=== PATIENT | female | born 1950 | race Hispanic/Latino ===

== ENCOUNTER → 2017-12-18 | Outpatient (CLI) | payer MEDICARE, MEDICAID | END | disposition home or self-care (01) | LOC: RAH 08:12 | PROVIDERS: ATTEND Internal Medicine Gastroenterology | DX: R10.12 Left upper quadrant pain (principal); Z90.49 Acquired absence of other specified parts of digestive tract | CPT/HCPCS: 76700 ==

== ENCOUNTER → 2024-10-26 | Outpatient (CLI) | payer MEDICARE ==
[2024-10-26 12:22] LABS: CREATININE 0.8 mg/dL (0.5-1.0)
== END | disposition home or self-care (01) ==
LOC: LAB 11:14
PROVIDERS: ATTEND Internal Medicine Gastroenterology
DX: R10.32 Left lower quadrant pain (principal)
CPT/HCPCS: 36415; 82565; 84520

== ENCOUNTER → 2024-11-05 | Outpatient (CLI) | payer MEDICARE ==
[~2024-11-05] MED LIST: IOHEXOL 350 MG/ML 100ML INFUS..BTL IV ONE
--- NOTE | 2024-11-05 11:53 | HMCIMG ---
Exam Type: CT ABDOMEN/PELVIS W/WO CONTRAS Clinical Information: LLQ PAIN Comparison: None Contrast: 100 cc's Isovue 370 IV, no complications or adverse reactions CT Dose Index (CTDI): 31.60 mGy Dose Length Product (DLP): 1740.80 total mGy-cm Findings: No evidence of nephro or ureterolithiasis is found. No hydronephrosis or ureteral dilatation is seen. The lung bases are clear. The stomach is unremarkable. It shows no wall thickening. No gross ulceration is seen. It is not overly distended. There are no surrounding inflammatory changes. No wall lesions are identified to suggest cancer. The spleen is unremarkable. It is not enlarged. The pancreas shows normal anatomy. It is not fatty replaced. It shows no lesions. The pancreatic duct is not dilated. The gallbladder is surgically absent. The adrenal glands are unremarkable. There is no enlargement. No lesions are noted. The liver is unremarkable. It shows no focal masses. The appendix is unremarkable. It shows no evidence of inflammation. No appendicolith is seen. The small bowel is unremarkable. There is no evidence of dilatation to suggest obstruction. No evidence of adynamic ileus is seen. There is no small bowel wall thickening to suggest enteritis. The colon is unremarkable. The urinary bladder is unremarkable. There is no wall thickening to suggest tumor or inflammation. There are no intraluminal calculi. There are no diverticula. There is no evidence of chronic bladder outlet obstruction. There is no evidence of urinary bladder distention to suggest urinary retention. The other pelvic structures are unremarkable. The bony and vascular structures are unremarkable for the patient's age. IMPRESSION: No acute pathology. This study was performed using dose reduction techniques to include automated exposure control and/or adjustment of the mA and/or kV according to patient size.
== END | disposition home or self-care (01) ==
LOC: RAH 09:59
PROVIDERS: ATTEND Internal Medicine Gastroenterology
DX: R10.32 Left lower quadrant pain (principal)
CPT/HCPCS: 74178; Q9967

== ENCOUNTER 2025-06-24 08:58 | Observation (INO) | payer MEDICARE ==
[~2025-06-24] VITALS: Ht 152.4 cm; Wt 45.8 kg
--- NOTE | 2025-06-24 09:22 | ERN ---
General Chief Complaint: Abdominal Pain Stated Complaint: LLQ ABDOMINAL PAIN Time Seen by MD: 10:09 Source: patient History of Present Illness Initial Comments This patient is a 74-year-old female who presented with complaint of abdominal pain. Patient states that pain started a week ago and she visited her PCP but pain did not improve, despite being on antibiotic therapy with Flagyl. Patient has pain in the umbilical abdominal quadrant as well as mild pain in left flank area. She also has episodes of vomiting for the past 3 days. She has had diarrhea without blood. She reports no fever or chills. Timing/Duration: 1 week Associated Symptoms: nausea/vomiting Allergies: Coded Allergies: No Known Allergies (Unverified Allergy, Unknown, 06/24/25) Past Medical History Past Medical History: Anemia, Arthritis, Diabetes-Type II, Diverticulosis, Hypertension Medical History Other: RA Past Surgical History: Other Gastrointestinal/Abdominal: (+) nausea, (+) vomiting, (+) diarrhea, (+) abdominal pain Genitourinary: (-) vaginal discharge, (-) vaginal bleeding, (-) dysuria, (-) frequency, (-) hematuria, (-) pain, (-) other documentation Musculoskeletal: (-) Neck pain, (-) back pain, (-) Flank Pain, (-) joint pain, (-) joint swelling, (-) muscle pain, (-) muscle stiffness, (-) gout, (-) other documentation Skin: (-) laceration, (-) contusion, (-) abrasion, (-) abscess, (-) rash, (-) change in color, (-) change in hair, (-) change in nails, (-) diaphoresis, (-) dryness, (-) other documentation Neuro: (-) altered mental status, (-) headache, (-) syncope, (-) paralysis, (-) numbness, (-) seizure, (-) pre-existing deficit, (-) tremors, (-) weakness, (-) dizziness, (-) slurred speech, (-) vertigo, (-) other documentation Psych: (-) depression, (-) suicidal ideation, (-) anxiety, (-) emotional problems, (-) auditory hallucinations, (-) visual hallucinations Hematologic/Lymphatic: (-) anemia, (-) blood clots, (-) easy bleeding, (-) easy bruising, (-) swollen glands, (-) other documentation Physical Exam General Appearance: (+) no apparent distress Orientation: (+) alert, (+) oriented x 3 Ear, Nose, Throat: (+) hearing grossly normal, (+) normal ENT inspection Neck: (+) normal inspection, (+) supple, (+) full range of motion Respiratory: (+) chest non-tender Heart: (+) regular Gastrointestinal: (+) soft, (+) tender (With deep palpation. In the umbilical and left lumbar regions) Extremities: (+) normal range of motion, (+) non-tender Neurologic/Psychiatric: (+) normal speech, (+) no motor defecits, (+) no sensory deficits Skin: (+) normal color Results Laboratory and Microbiology Lab and Micro Result Laboratory Tests Test 06/24/25 09:45 06/24/25 10:18 06/24/25 10:45 06/24/25 11:41 White Blood Count 6.1 K/uL (4.8-10.8) Red Blood Count 3.05 MIL/uL (4.00-5.50) L Hemoglobin 9.5 g/dL (12.0-16.0) L Hematocrit 28.6 % (36-48) L Mean Corpuscular Volume 93.8 fL (79-99) Mean Corpuscular Hemoglobin 31.1 pg (27.0-33.0) Mean Corpuscular Hemoglobin Concent 33.2 g/dL (32.0-36.0) Red Cell Distribution Width 12.4 % (11.0-15.5) Platelet Count 215 K/uL (130-400) Mean Platelet Volume 9.7 fL (7.5-10.5) Nucleated Red Blood Cells 0.0 % (0.0-0.19) Sodium Level 130 mmol/L (136-145) L Potassium Level 5.7 mmol/L (3.5-5.1) H Chloride Level 100 mmol/L (101-111) L Carbon Dioxide Level 22 mmol/L (21-32) Blood Urea Nitrogen 24 mg/dL (7-18) H Creatinine 1.2 mg/dL (0.5-1.0) H Glomerular Filtration Rate Calc 47 mL/min (>90) Random Glucose 259 mg/dL (70-105) H Total Calcium 8.8 mg/dL (8.5-10.1) Total Bilirubin 0.3 mg/dL (0.2-1.0) Aspartate Amino Transf (AST/SGOT) 23 U/L (10-37) Alanine Aminotransferase (ALT/SGPT) 32 U/L (12-78) Alkaline Phosphatase 87 U/L (50-136) Total Protein 7.0 g/dL (6.0-8.3) Albumin 3.5 g/dL (3.5-5.0) Urine Color YELLOW (YELLOW) Urine Appearance CLEAR (CLEAR) Urine pH 5.0 (5.0-8.0) Urine Specific [place] 1.013 (1.001-1.031) Urine Protein 10 mg/dL (NEGATIVE) H Urine Glucose (UA) 200 mg/dL (NEGATIVE) H Urine Ketones NEGATIVE mg/dL (NEGATIVE) Urine Occult Blood NEGATIVE (NEGATIVE) Urine Nitrate NEGATIVE (NEGATIVE) Urine Bilirubin NEGATIVE mg/dL (NEGATIVE) Urine Urobilinogen 0.2 mg/dL (0.2-1.0) Urine Leukocyte Esterase 75 Susan/uL (NEGATIVE) H Urine RBC 2-5 /HPF (0-1) H Urine WBC 6-10 /HPF (0-1) H Urine Squamous Epithelial Cells RARE /HPF (0-2) Urine Non-Squamous Epithelial Cells 1 /HPF (0-2) Urine Bacteria None /HPF (None Seen) Urine Hyaline Casts 2-5 /LPF (0-1 /LPF) H Whole Blood Glucose 220 MG/DL (70-110) H 137 MG/DL (70-110) H EKG/XRAY/US/CT/MRI EKG Comment 06/24/2025 9:21 a.m. Sinus rhythm Rate 80, MA 144, QT 368, [place]: P 70, T 75, QRS -[address]-elevation CT Scan Comment PATIENT: ARGENIS DUMONT MR#: [id number] : 1950 SEX: F AGE: 74 LOCATION: [facility] ORDER 2 STATUS: REG REPORT#: [id number] SERVICE 9 REASON: Abdominal pain localized to left lower quadrant and left flank area. ORDERING PHYSICIAN: DAVIE FRANKLIN MD PROCEDURE: ABD PEL WO - CT ABDOMEN/PELVIS W/O CONTRAST EXAM: CT Abdomen and Pelvis without IV contrast CLINICAL HISTORY: Abdominal pain localized to left lower quadrant and left flank. TECHNIQUE: Thin collimated axial CT images of the abdomen and pelvis were obtained with sagittal and coronal reformatted images also submitted. CT scan is done according to ALARA (As Low As Reasonably Achievable). CONTRAST: None. COMPARISON: Prior CT abdomen and pelvis dated 11/05/24. FINDINGS: Linear atelectasis at the right lung base. No focal abnormality within the liver, pancreas, spleen, or adrenals. Small 6 mm cortical cyst at the lower pole of the right kidney. Status post cholecystectomy. There is no obvious bowel wall thickening. Bowel loops are normal in caliber without evidence of obstruction or ileus. The appendix is normal. There is no abnormality within the urinary bladder. Unremarkable reproductive organs. Senile myometrial calcifications. No lymphadenopathy. No free fluid. There is no acute osseous abnormality. Multilevel thoracolumbar spondylosis. IMPRESSIONS: No acute process in the abdomen or pelvis. No significant interval change. /[place] DICTATED BY: SEVERIANO DOMINGO Jr., MD DATE: 06/24/25 121 ELECTRONICALLY SIGNED BY: SEVERIANO DOMINGO Jr., MD DATE: 06/24/25 1211 [facility] Differential Diagnosis: Dehydration, acute kidney injury, acute cystitis, viral gastroenteritis This patient is a 74-year-old female who presented with complaint of abdominal pain. Patient states that pain started a week ago and she visited her PCP but pain did not improve, despite being on antibiotic therapy with Flagyl. Patient has pain in the umbilical abdominal quadrant as well as mild pain in left flank area. She also has episodes of vomiting for the past 3 days. She has had diarrhea without blood. She reports no fever or chills. On Presentation, CMP was done which showed elevated creatinine and BUN with 20:1. Patient's sodium was reduced to 130. Potassium was elevated at 5.7. Patient missed her insulin dose yesterday and her blood glucose this morning was elevated, 257. She was given insulin 5 units for hyperglycemia and elevated pot assium. She was also provided 500 mL normal saline for dehydration. Ondansetron was given for vomiting and Tylenol for pain. Rocephin injection was given for suspected cystitis. CT abdomen pelvis without contrast was performed which showed no acute process in the abdomen or pelvis and no significant interval change. Urinalysis profile showed elevated leukocyte esterase. Patient is pending repeat BMP and urine culture. ED Course Orders Procedure Category Date Status Time Cbc Without LAB 06/24/25 Complete Differential 09:10 Comprehensive LAB 06/24/25 Complete Metabolic Panel 09:10 Ct Abdomen/Pelvis W/O CT 06/24/25 Resulted Contrast 09:10 Urinalysis Profile LAB 06/24/25 Complete 09:10 0.9% Nacl 500ml PHA 06/24/25 Complete Iv.Soln (Ns 500ml 09:30 Ondansetron 4mg Inj PHA 06/24/25 Complete (Zofran 4mg Inj) 09:30 Acetaminophen 500mg PHA 06/24/25 Complete Tab (Tylenol 500mg T 09:30 12 Lead Ekg Tracing- EKG 06/24/25 Complete Technical 09:32 Culture Urine LEOBARDO 06/24/25 In Process 10:36 Insulin Regular, PHA 06/24/25 Complete Human 3ml (Humulin R 11:00 Ceftriaxone 1g Vial PHA 06/24/25 Complete (Rocephine 1g Inj) 11:30 Basic Metabolic Panel LAB 06/24/25 Logged 12:00 Current Medications Medications (Trade) Dose Ordered Sig/Ines Route PRN Reason Start Time Stop Time Status Last Admin Dose Admin Acetaminophen (TYLenol 500MG TAB) 500 mg ONCE ONCE PO 06/24/25 09:30 06/24/25 09:31 DC 06/24/25 10:25 Ceftriaxone Sodium (ROCEphine 1G INJ) 1 gm ONCE ONCE IVPB 06/24/25 11:30 06/24/25 11:31 DC 06/24/25 11:33 Insulin Human Regular (humuLIN R 100 UNIT/ML 3ML) 5 unit ONCE ONCE IV 06/24/25 11:00 06/24/25 11:01 DC 06/24/25 10:55 Ondansetron HCl (zoFRAN 4MG INJ) 4 mg ONCE ONCE IVP 06/24/25 09:30 06/24/25 09:31 DC 06/24/25 10:25 Sodium Chloride 500 ml @ 0 mls/hr ONCE ONCE IV 06/24/25 09:30 06/24/25 09:31 DC 06/24/25 10:25 Vital Signs Date Time Temp Pulse Resp B/P (MAP) Pulse Ox O2 Delivery O2 Flow Rate FiO2 06/24/25 10:32 97.9 76 16 131/55 100 Room Air* 0 21 06/24/25 09:30 98.6 88 20 128/54 99 Room Air* 0 21 06/24/25 09:00 98.6 88 20 128/54 99 Room Air DX & DISP Disposition: Inpatient Departure Impression: Primary Impression: Cystitis Additional Impressions: Acute kidney injury, Hyperkalemia, Dehydration Condition: Stable Referrals: CAMRYN TOWNSEND MD (PCP) I have examined patient, & reviewed all documents, & agreed W/ the Diagnosis, and Plan ATTESTATION BY PHYSICIAN I have seen and examined the patient. I reviewed the documentation, medical decision making, and treatment plan as noted by the resident provider above. I agree with the findings and plan of care. LORI IBRAHIM MD, MUHAMMAD H MD Jun 24, 2025 09:22
--- NOTE | 2025-06-24 09:54 | EKG ---
[facility] Test Date: 2025-06-24 Test Time: 09:21:01 Pat Name: ARGENIS DUMONT Department: ED Room: 306 Gender: F Reservations Agent: [id number] : 1950 Requested By: LORI IBRAHIM Order Number: [id number] Reading MD: Sung Aguilar Measurements Intervals [place] Rate: 80 P: 70 AR: 144 QRS: -11 QRSD: 103 T: 75 QT: 368 QTc: 424 Interpretive Statements Sinus rhythm Ventricular premature complex Probable left atrial enlargement Left ventricular hypertrophy Probable anterior infarct, old No previous ECG available for comparison Electronically Signed On 06-27-2025 10:29:02 CDT by Sung Aguilar Please click the below link to view image of tracing.
[2025-06-24 09:57] LABS: NUCLEATED RED BLOOD CELLS 0.0 % (0.0-0.19); PLATELET COUNT (AUTO) 215.0 K/uL (130-400); RED BLOOD CELL COUNT(AUTO) 3.05 MIL/uL (4.00-5.50); RED CELL DISTRIBUTION WIDTH 12.4 % (11.0-15.5); WHITE BLOOD COUNT (AUTO) 6.1 K/uL (4.8-10.8)
[2025-06-24 10:23] LABS: CREATININE 1.2 mg/dL (0.5-1.0); GLOMERULAR FILTR. RATE CALC 47.0 mL/min (>90); GLUCOSE,RANDOM 259.0 mg/dL (70-105); SODIUM SERUM 130.0 mmol/L (136-145); UREA NITROGEN, BLOOD 24.0 mg/dL (7-18)
[2025-06-24] MEDS: 0.9% NACL 500ML IV.SOLN 500 ML IV ONE (10:25)
[2025-06-24 10:27] LABS: ASPARTATE AMINOTRANSFERASE 23.0 U/L (10-37); TOTAL PROTEIN, SERUM 7.0 g/dL (6.0-8.3)
[2025-06-24 10:29] LABS: APPEARANCE,URINE CLEAR (CLEAR); GLUCOSE, URINE (UA) 200 mg/dL (NEGATIVE); LEUKOCYTE ESTERASE ,URINE 75 Leu/uL (NEGATIVE); NITRATE,URINE NEGATIVE (NEGATIVE); OCCULT BLOOD,URINE NEGATIVE (NEGATIVE)
[2025-06-24 10:30] LABS: ADD UA MICROSCOPIC YES
[2025-06-24 10:37] LABS: NON-SQUAMOUS EPITHELIAL CELL 1 /HPF (0-2); SQUAMOUS EPITHELIAL CELL,UR RARE /HPF (0-2)
--- NOTE | 2025-06-24 11:11 | HMCIMG ---
EXAM: CT Abdomen and Pelvis without IV contrast CLINICAL HISTORY: Abdominal pain localized to left lower quadrant and left flank. TECHNIQUE: Thin collimated axial CT images of the abdomen and pelvis were obtained with sagittal and coronal reformatted images also submitted. CT scan is done according to ALARA (As Low As Reasonably Achievable). CONTRAST: None. COMPARISON: Prior CT abdomen and pelvis dated 11/05/24. FINDINGS: Linear atelectasis at the right lung base. No focal abnormality within the liver, pancreas, spleen, or adrenals. Small 6 mm cortical cyst at the lower pole of the right kidney. Status post cholecystectomy. There is no obvious bowel wall thickening. Bowel loops are normal in caliber without evidence of obstruction or ileus. The appendix is normal. There is no abnormality within the urinary bladder. Unremarkable reproductive organs. Senile myometrial calcifications. No lymphadenopathy. No free fluid. There is no acute osseous abnormality. Multilevel thoracolumbar spondylosis. IMPRESSIONS: No acute process in the abdomen or pelvis. No significant interval change. /[place]
[2025-06-24 12:25] LABS: CREATININE 1.1 mg/dL (0.5-1.0); GLOMERULAR FILTR. RATE CALC 52.0 mL/min (>90); GLUCOSE,RANDOM 134.0 mg/dL (70-105); SODIUM SERUM 131.0 mmol/L (136-145); UREA NITROGEN, BLOOD 22.0 mg/dL (7-18)
--- NOTE | 2025-06-24 16:03 | NUR ---
DCP:HOME Pt currently lives at home with her daughter Yoselin Henry [phone] and . pt does not have any DME or home health services. Daughter states her sister is the pt's provider however did not know how many hours she works with her and didn't answer phone call. Provider does assist with all ADLs, home management, and meals. PCP is Dr. Alcides Luis and uses [facility] for any RX needs. At DC pt will want to go home and family can assist with transportation. Addendum: 06/24/25 at 1607 by QUINN MONTES DE OCA SS Amended: Links added.
[2025-06-24] MEDS: 1/2 NS 1000ML 1,000 ML IV SCH (17:02)
[2025-06-24] MEDS ORDERED: PIOG30TA70 PO (18:58)
[2025-06-24] MEDS ORDERED: CELE-146 PO (18:58)
[2025-06-24] MEDS ORDERED: DICY20TA3 PO (18:58)
[2025-06-24] MEDS ORDERED: FERR-82 PO (18:58)
[2025-06-24] MEDS ORDERED: ONDA-243 PO (18:58)
[2025-06-24] MEDS ORDERED: METR-172 PO (18:58)
[2025-06-24] MEDS ORDERED: METF-444 PO (18:58)
[2025-06-24] MEDS ORDERED: OMEP40CA21 PO (18:58)
[2025-06-24] MEDS ORDERED: HYDR200T75 PO (18:58)
[2025-06-24] MEDS ORDERED: LISI40TA15 PO (18:58)
[2025-06-24] MEDS ORDERED: ATOR10 PO (18:58)
--- NOTE | 2025-06-24 21:01 | HP ---
HISTORY AND PHYSICAL NOTE DATE OF CONSULTATION: 06/24/25 REASON FOR CONSULTATION: diarrhea HISTORY OF PRESENT ILLNESS: This patient is a 74-year-old female who presented with complaint of abdominal pain. Patient states that pain started a week ago and she visited her PCP but pain did not improve, despite being on antibiotic therapy with Flagyl. Patient has pain in the umbilical abdominal quadrant as well as mild pain in left flank area. She also has episodes of vomiting for the past 3 days. She has had diarrhea without blood. She reports no fever or chills. Timing/Duration: 1 week Associated Symptoms: nausea/vomiting Allergies: Coded Allergies: No Known Allergies (Unverified Allergy, Unknown, 06/24/25) Past History Past Medical History Past Medical History: Anemia, Arthritis, Diabetes-Type II, Diverticulosis, Hypertension Medical History Other: RA Past Surgical History: Other Review of Systems Gastrointestinal/Abdominal: (+) nausea, (+) vomiting, (+) diarrhea, (+) abdominal pain Genitourinary: (-) vaginal discharge, (-) vaginal bleeding, (-) dysuria, (-) frequency, (-) hematuria, (-) pain, (-) other documentation Musculoskeletal: (-) Neck pain, (-) back pain, (-) Flank Pain, (-) joint pain, (-) joint swelling, (-) muscle pain, (-) muscle stiffness, (-) gout, (-) other documentation Skin: (-) laceration, (-) contusion, (-) abrasion, (-) abscess, (-) rash, (-) change in color, (-) change in hair, (-) change in nails, (-) diaphoresis, (-) dryness, (-) other documentation Neuro: (-) altered mental status, (-) headache, (-) syncope, (-) paralysis, (-) numbness, (-) seizure, (-) pre-existing deficit, (-) tremors, (-) weakness, (-) dizziness, (-) slurred speech, (-) vertigo, (-) other documentation Psych: (-) depression, (-) suicidal ideation, (-) anxiety, (-) emotional problems, (-) auditory hallucinations, (-) visual hallucinations Hematologic/Lymphatic: (-) anemia, (-) blood clots, (-) easy bleeding, (-) easy bruising, (-) swollen glands, (-) other documentation ALLERGIES: Coded Allergies: No Known Allergies (Unverified Allergy, Unknown, 06/24/25) HOME MEDS: Reported Medications Omeprazole (Omeprazole) 40 Mg Capsule.dr, 1 CAP PO DAILY for 30 Days, #30 CAP 0 Refills 06/24/25 Pioglitazone HCl (Pioglitazone HCl) 30 Mg Tablet, 1 TAB PO DAILY for 30 Days, #30 TAB 0 Refills 06/24/25 Atorvastatin Calcium (LIPITOR) 10 Mg Tab, 1 TAB PO HS for 30 Days, #30 TAB 0 Refills 06/24/25 Ondansetron (Ondansetron Odt) 4 Mg Tab.rapdis, 1 TAB PO Q6HPRN PRN for nausea/vomiting for 4 Days, #16 TAB 0 Refills 06/24/25 Celecoxib (Celecoxib) 100 Mg Capsule, 1 CAP PO BID for 10 Days, #20 CAP 0 Refills 06/24/25 Lisinopril (Lisinopril) 40 Mg Tablet, 1 TAB PO DAILY for 30 Days, #30 TAB 0 Refills 06/24/25 Hydroxychloroquine Sulfate (Hydroxychloroquine Sulfate) 200 Mg Tablet, 200 MG PO DAILY, TAB 06/24/25 Metformin HCl (Metformin HCl) 500 Mg Tablet, 1 TAB PO BID for 30 Days, #60 TAB 0 Refills 06/24/25 Ferrous Sulfate (Iron) 325 Mg (65 Mg Iron) Tablet, 325 MG PO DAILY, TAB 06/24/25 Metronidazole (Metronidazole) 500 Mg Tablet, 1 TAB PO BID for 7 Days, #14 TAB 0 Refills 06/24/25 Dicyclomine HCl (Dicyclomine HCl) 20 Mg Tablet, 1 TAB PO TID PRN for ABDOMINAL PAIN for 10 Days, #30 TAB 0 Refills 06/24/25 INPATIENT MEDS: Current Medications Medications Dose Ordered Sig/Ines Start Time Stop Time Status Last Admin Sodium Chloride 1,000 ml @ 125 mls/hr Q8H 06/24/25 14:30 07/24/25 14:29 06/24/25 19:45 Levofloxacin/ Dextrose 100 ml @ 100 mls/hr Q24H 06/24/25 14:30 07/04/25 14:29 06/24/25 17:01 Pantoprazole Sodium 40 mg DAILY 06/25/25 09:00 07/25/25 08:59 Atorvastatin Calcium 10 mg HS 06/24/25 21:00 07/24/25 20:59 06/24/25 19:44 Celecoxib 100 mg BID 06/24/25 21:00 07/24/25 20:59 06/24/25 19:54 Hydroxychloroquine Sulfate 200 mg DAILY 06/25/25 09:00 07/09/25 08:59 Lisinopril 40 mg DAILY 06/25/25 09:00 07/25/25 08:59 Metformin HCl 500 mg BID 06/24/25 21:00 07/24/25 20:59 06/24/25 19:44 Ondansetron HCl 4 mg Q6HWA PRN 06/24/25 19:00 07/24/25 18:59 Ferrous Sulfate 325 mg DAILY 06/25/25 09:00 07/25/25 08:59 Pantoprazole Sodium 40 mg DAILY 06/25/25 09:00 07/25/25 08:59 VITAL SIGNS Vital Signs Date Time Temp Pulse Resp B/P (MAP) Pulse Ox O2 Delivery O2 Flow Rate FiO2 06/24/25 19:18 98.4 86 17 152/63 99 Room Air* 0 06/24/25 17:08 98.8 78 16 144/39 100 Room Air* 0 06/24/25 13:03 97.9 78 16 138/56 100 Room Air* 0 06/24/25 10:32 97.9 76 16 131/55 100 Room Air* 0 06/24/25 09:30 98.6 88 20 128/54 99 Room Air* 0 06/24/25 09:00 98.6 88 20 128/54 99 Room Air PHYSICAL EXAM Physical Exam General Appearance: (+) no apparent distress Orientation: (+) alert, (+) oriented x 3 Ear, Nose, Throat: (+) hearing grossly normal, (+) normal ENT inspection Neck: (+) normal inspection, (+) supple, (+) full range of motion Respiratory: (+) chest non-tender Heart: (+) regular Gastrointestinal: (+) soft, (+) tender (With deep palpation. In the umbilical and left lumbar regions) Extremities: (+) normal range of motion, (+) non-tender Neurologic/Psychiatric: (+) normal speech, (+) no motor defecits, (+) no sensory deficits Skin: (+) normal color LABORATORY RESULTS Laboratory Tests 06/24/25 09:45: White Blood Count 6.1, Red Blood Count 3.05, Hemoglobin 9.5, Hematocrit 28.6, Mean Corpuscular Volume 93.8, Mean Corpuscular Hemoglobin 31.1, Mean Corpuscular Hemoglobin Concent 33.2, Red Cell Distribution Width 12.4, Platelet Count 215, Mean Platelet Volume 9.7, Nucleated Red Blood Cells 0.0, Sodium Level 130, Potassium Level 5.7, Chloride Level 100, Carbon Dioxide Level 22, Blood Urea Nitrogen 24, Creatinine 1.2, Glomerular Filtration Rate Calc 47, Random Glucose 259, Total Calcium 8.8, Total Bilirubin 0.3, Aspartate Amino Transf (AST/SGOT) 23, Alanine Aminotransferase (ALT/SGPT) 32, Alkaline Phosphatase 87, Total Protein 7.0, Albumin 3.5 06/24/25 10:18: Urine Color YELLOW, Urine Appearance CLEAR, Urine pH 5.0, Urine Specific [place] 1.013, Urine Protein 10, Urine Glucose (UA) 200, Urine Ketones NEGATIVE, Urine Occult Blood NEGATIVE, Urine Nitrate NEGATIVE, Urine Bilirubin NEGATIVE, Urine Urobilinogen 0.2, Urine Leukocyte Esterase 75, Urine RBC 2-5, Urine WBC 6-10, Urine Squamous Epithelial Cells RARE, Urine Non-Squamous Epithelial Cells 1, Urine Bacteria None, Urine Hyaline Casts 2-5 06/24/25 10:45: Whole Blood Glucose 220 06/24/25 11:41: Whole Blood Glucose 137 06/24/25 11:54: Sodium Level 131, Potassium Level 4.8, Chloride Level 103, Carbon Dioxide Level 21, Blood Urea Nitrogen 22, Creatinine 1.1, Glomerular Filtration Rate Calc 52, Random Glucose 134, Total Calcium 8.3 06/24/25 15:49: Whole Blood Glucose 153 PROBLEM LIST: (1) Diarrhea ICD Codes: R19.7 - Diarrhea, unspecified (2) Dehydration ICD Codes: E86.0 - Dehydration (3) Hyperkalemia ICD Codes: E87.5 - Hyperkalemia (4) Cystitis ICD Codes: N30.90 - Cystitis, unspecified without hematuria PLAN hydrate antibiotic monitor FROYLAN PARRA MD Jun 24, 2025 21:01
[2025-06-24 22:08] VITALS: O2SAT 100
[2025-06-25] VITALS: BP 138/58; PULSE 81; RESP 16; TEMP 98
[2025-06-25 03:37] VITALS: BP 138/59; PULSE 78; RESP 17; TEMP 97.7
[2025-06-25 04:38] LABS: IMMATURE GRANULOCYTE ABSOLUTE 0.02 K/uL (0-1); NUCLEATED RED BLOOD CELLS 0.0 % (0.0-0.19); PLATELET COUNT (AUTO) 189 K/uL (130-400); RED BLOOD CELL COUNT(AUTO) 2.67 MIL/uL (4.00-5.50); RED CELL DISTRIBUTION WIDTH 12.4 % (11.0-15.5); WHITE BLOOD COUNT (AUTO) 5.0 K/uL (4.8-10.8)
[2025-06-25 05:03] LABS: ASPARTATE AMINOTRANSFERASE 26.0 U/L (10-37); CREATININE 0.8 mg/dL (0.5-1.0); GLOMERULAR FILTR. RATE CALC 77.0 mL/min (>90); GLUCOSE,RANDOM 195.0 mg/dL (70-105); SODIUM SERUM 132.0 mmol/L (136-145); TOTAL PROTEIN, SERUM 5.7 g/dL (6.0-8.3); UREA NITROGEN, BLOOD 13.0 mg/dL (7-18)
--- NOTE | 2025-06-25 07:56 | DS ---
Discharge Summary DIAGNOSE(S): [Diarrhea dehydration] HOSPITAL COURSE SUMMARY: [Improved with hydration and was discharged no significant clinical UTI noted] ROUTE DELIVERY MANAGER(S): [] PROCEDURE(S)/TREATMENT(S): [None] PROBLEM(S): [] FOLLOW-UP TEST(S): [None] DISCHARGE INSTRUCTIONS: [Follow up with PCP in 1-2 days] Home Meds Reported Medications Omeprazole (Omeprazole) 40 Mg Capsule.dr, 1 CAP PO DAILY for 30 Days, #30 CAP 0 Refills 06/24/25 Pioglitazone HCl (Pioglitazone HCl) 30 Mg Tablet, 1 TAB PO DAILY for 30 Days, #30 TAB 0 Refills 06/24/25 Atorvastatin Calcium (LIPITOR) 10 Mg Tab, 1 TAB PO HS for 30 Days, #30 TAB 0 Refills 06/24/25 Ondansetron (Ondansetron Odt) 4 Mg Tab.rapdis, 1 TAB PO Q6HPRN PRN for nausea/vomiting for 4 Days, #16 TAB 0 Refills 06/24/25 Celecoxib (Celecoxib) 100 Mg Capsule, 1 CAP PO BID for 10 Days, #20 CAP 0 Refills 06/24/25 Lisinopril (Lisinopril) 40 Mg Tablet, 1 TAB PO DAILY for 30 Days, #30 TAB 0 Refills 06/24/25 Hydroxychloroquine Sulfate (Hydroxychloroquine Sulfate) 200 Mg Tablet, 200 MG PO DAILY, TAB 06/24/25 Metformin HCl (Metformin HCl) 500 Mg Tablet, 1 TAB PO BID for 30 Days, #60 TAB 0 Refills 06/24/25 Ferrous Sulfate (Iron) 325 Mg (65 Mg Iron) Tablet, 325 MG PO DAILY, TAB 06/24/25 Metronidazole (Metronidazole) 500 Mg Tablet, 1 TAB PO BID for 7 Days, #14 TAB 0 Refills 06/24/25 Dicyclomine HCl (Dicyclomine HCl) 20 Mg Tablet, 1 TAB PO TID PRN for ABDOMINAL PAIN for 10 Days, #30 TAB 0 Refills 06/24/25 FROYLAN PARRA MD Jun 25, 2025 07:56
[2025-06-25 08:00] VITALS: BP 127/70; PULSE 85; RESP 19; TEMP 97.5
[2025-06-25] MEDS: FERROUS SULFATE 325 MG TABLET.DR PO SCH (08:59)
[2025-06-25] MEDS: LISINOPRIL 40 MG TABLET PO SCH (08:59)
[2025-06-25 11:23] VITALS: BP 123/67; PULSE 80; RESP 19; TEMP 98
== END 2025-06-25 16:15 | disposition home or self-care (01) ==
LOC: EDH 08:58 → UNDOADMOB 13:59 → INTOOBSV 13:59 → EDHIP 13:59 → 3BH 22:19 → EDHIP 22:19 → 3BH 06-25 10:00
PROVIDERS: ADMIT Internal Medicine; ATTEND Internal Medicine
DX: R19.7 Diarrhea, unspecified (principal); E86.0 Dehydration; R11.2 Nausea with vomiting, unspecified; M19.90 Unspecified osteoarthritis, unspecified site; E87.5 Hyperkalemia; N30.91 Cystitis, unspecified with hematuria; I10 Essential (primary) hypertension; E11.9 Type 2 diabetes mellitus without complications; D64.9 Anemia, unspecified; Z79.899 Other long term (current) drug therapy; Z98.890 Other specified postprocedural states
CPT/HCPCS: 96361 ×5; 96365; 96375 ×2; 96367; 99285; 80053 ×2; 85027; 87086; 82948 ×5; 81001; 36415 ×2; 74176; 93005; 85025; J1815; J7040; J1956; J0696; J2405; G0378 ×6; 80048; 96374